=== PATIENT | female | born 1990 | race American Indian/Alaskan Native ===

== ENCOUNTER 2018-09-14 10:28 | Emergency (ER) | payer OTHER ==
[2018-09-14 10:40] VITALS: BP 149/76
[2018-09-14] MEDS ORDERED: NORCO 5/325 PO ONE (12:34)
[2018-09-14] MEDS ORDERED: IBUPROFEN PO ONE (12:34)
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
== END 2018-09-14 13:19 | disposition home or self-care (01) ==
LOC: ED 10:28
DX: M54.5 Low back pain (principal); M54.6 Pain in thoracic spine; M79.602 Pain in left arm; Z79.899 Other long term (current) drug therapy; V59.49XA Driver of pick-up truck or van injured in collision with other motor vehicles in traffic accident, initial encounter; Y93.89 Activity, other specified; Y92.488 Other paved roadways as the place of occurrence of the external cause; Y99.8 Other external cause status
CPT/HCPCS: 99282